=== PATIENT | female | born 1985 | race African-American/Black ===

== ENCOUNTER 2021-06-09 07:53 | Outpatient (CLI) | payer OTHER, MEDICAID, SELFPAY ==
--- NOTE | ~2021-06-09 | MR_ITS ---
EXAMINATION: MR abdomen wo/w con DATE: 06/09/2021 09:47 INDICATION: Acquired renal cyst TECHNIQUE: Magnetic resonance imaging (MRI) of the abdomen was performed without and with 20 mL Multi margo intravenous contrast. Sequences included coronal T2-weighted SS-FSE, coronal and axial FS 2D-F IESTA, axial STIR FSE, axial T2-weighted SS-FSE, axial T2-weighted FS SS-FSE, axial diffusion-weighte d SE, axial dual-echo T1-weighted FSPGR, and axial and coronal T1-weighted LAVA. Postcontrast axial T 1-weighted LAVA images were obtained in a time course. Postcontrast coronal T1-weighted LAVA images w ere obtained. COMPARISON: None. FINDINGS: Heart size is normal. No pericardial effusion. Tiny posterior layering left pleural effusion. Liver, gallbladder, spleen, pancreas, right kidney and bilateral adrenal glands are normal. 1.9 cm complex c yst at the lower pole of the left kidney with layering fluid fluid level posteriorly T1 hyperintense and T2 hypointense consistent with either blood or milk of calcium. No internal septations or enhanci ng soft tissue component. No pathologically enlarged abdominal lymphadenopathy. The bowels, bladder a nd uterus are unremarkable in the larger field of view coronal images. Normal bone marrow signal thro ughout.. IMPRESSION: 1. 1.9 cm complex left renal cyst with posterior layering blood or milk of calcium. 2. Tiny left pleural effusion. Reviewed, dictated and finalized at location A. [employer] IMPRESSION: 1. 1.9 cm complex left renal cyst with posterior layering blood or milk of calc ium. 2. Tiny left pleural effusion.
[2021-06-09 09:51] LABS: Estimated Glomerular Filt Rate > 60
== END 2021-06-09 07:54 | disposition home or self-care (01) ==
PROVIDERS: Visit Provider Urology
DX: N28.1 Cyst of kidney, acquired (principal)
CPT/HCPCS: 74183; A9577

== ENCOUNTER 2021-06-21 08:20 | Outpatient (RCR) | payer OTHER, MEDICAID, SELFPAY ==
--- NOTE | 2021-06-21 09:25 | PTOPEVAL ---
PHYSICAL THERAPY EVALUATION AND PLAN OF CARE 06-21-21 Thank you for referring Joya Coats to [facility].? She is scheduled to be seen for therapy? 2 x/week for 3 weeks. Treatment will be aquatic therapy, for the buoyancy effects of the water to decrease her pain. Please review, sign, date and return this plan of care ANTONIA. I agree with and certify that the following plan of care is medically necessary. Referring Physician Date Attending Provider: Alma Chun MD Document 06/21/21 08:20 MARISOL (Rec: 06/21/21 09:24 MARISOL [id number]) Past Medical History Source of Past Medical History Patient Neurological History Hx Migraine Yes: few times/month, cluster headaches Cardiovascular History Hx Cardiac Disorders No Significant History Respiratory History Hx Respiratory Disorders No Significant History Gastrointestinal History Hx Gastrointestinal Disorders No Significant History Genitourinary History Hx Genitourinary Disorders No Significant History Musculoskeletal History Hx Arthritis Yes: B knee pain/injections, shoulder R rot cuff repair, pain B sh Hx Back Pain Yes: chronic back pain/ Hx Orthopedic Surgery Yes: 17 procedures to back- ablation,radioablation~ past 2 & 1/2 yr Hx Other Musculoskeletal Disorders Yes: fibromyalgis,chronic pain syndrome from back procedure Hematological History Hx Hematological Disorders No Significant History Endocrine History Hx Endocrine Disorders No Significant History HEENT History Hx Other HEENT Disorders Yes: sinus surgery Integumentary History Hx Skin Disorders No Significant History Reproductive History Hx Section Yes Hx Other Reproductive Disorders Yes: LMP 03/19/2019 Psychosocial History Hx Anxiety Yes Hx Post Traumatic Stress Disorder Yes Hx Other Psychiatric Disorders Yes: situationsal anxiety with 4 yr old child Other History Hx Other Medical Conditions Yes: obesity Evaluation Information Problem Diagnosis fibromyalgis and LBP with leg pain Onset October 2020 Subjective Information have had multiple tests---MRI Query Text:As Reported By Patient/ of neck, thoracic and lumbar Family areas; x rays of hips, knees, back; doppler studies, EMG; pain management --had recent MRI and to get results next week; is considering neuro stim implant;
--- NOTE | 2021-06-26 08:21 | PCPTNOTE ---
Patient did not show up for scheduled appointment this date. Called patient, was unable to leave a message mail box was full.
--- NOTE | 2021-06-30 08:52 | PCPTNOTE ---
Patient did not show up for scheduled appointment this date. Pt called and stated to have over slept. Will continue per POC. This is patient's second N/S.
--- NOTE | 2021-07-03 12:55 | PCPTNOTE ---
Patient did not show up for scheduled appointment this date. Called & left a message, that per our policy of 3 no shows, she will need a new order to continue therapy.
--- NOTE | 2021-07-12 15:44 | PCPTNOTE ---
PHYSICAL THERAPY DISCHARGE 07-12-21 Attending Provider: Alma Chun MD Patient:Joya Coats Date of :1985 Patient has not returned for any further treatments since the initial evaluation on 06/21/2021, therefore she will be discharged at this time. She did not show for 3 scheduled appointments. The goals were not addressed. Thank you for referring this patient to [facility]. Please review, sign, date and return this discharge summary ANTONIA. I have been updated about the patient's current status and I agree with discharge from the above service at this time. Referring Physician Date
== END 2021-07-13 07:22 | disposition home or self-care (01) ==
LOC: ANHPT 08:20
PROVIDERS: Visit Provider Physical Medicine & Rehabilitation Pain Medicine
DX: M79.7 Fibromyalgia (principal); M54.50 Low back pain, unspecified; M79.606 Pain in leg, unspecified
CPT/HCPCS: 97162

== ENCOUNTER → 2022-02-08 16:06 | Outpatient (CLI) | payer OTHER, MEDICAID, SELFPAY ==
--- NOTE | ~2022-02-08 | MR_ITS ---
EXAMINATION: MR knee RT wo con DATE: 02/08/2022 17:14 INDICATION: Chronic right knee pain TECHNIQUE: Magnetic resonance imaging (MRI) of the right knee was performed without intravenous contr ast. Sequences included coronal PD-weighted FSE, coronal PD-weighted FS FSE, sagittal T2-weighted FS E, sagittal PD-weighted FS FSE and axial PD weighted fat saturated FSE. COMPARISON: None. FINDINGS: Medial compartment: Mild medial extrusion of the medial meniscal body without meniscal tear. Mild partial-thickness carti pérez loss along the medial side of the anterior weightbearing medial femoral condyle. Mild partial-th ickness chondral fissuring along the lateral margin of the anterior weightbearing medial femoral cond yle. Lateral compartment: Lateral meniscus is normal. Articular cartilage is normal. Patellofemoral compartment: Partial-thickness patellar cartilage loss with chondral surface regularity and scattered partial thic kness chondral fissuring but without degenerative subchondral changes. Ligaments and tendons: Anterior and posterior cruciate ligaments are normal. The medial collateral ligament and fibular rajesh ateral ligament complex are normal. The extensor mechanism is normal. The visualized medial and later al hamstring tendons as well as the iliotibial band are normal. Fluid: Physiologic amount of fluid in the joint space. No loose osteochondral bodies identified. Osseous/other: Normal marrow signal. No fracture or pathologic marrow replacing process. IMPRESSION: 1. 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 2. Medial extrusion of the medial meniscal body without tear. Reviewed, dictated and finalized at location A. IMPRESSION: 1. Mild osteoarthritis with regions of moderate grade chondromalacia in the pat ellofemoral and to lesser degree medial compartments. 2. Medial extrusion of the medial meniscal body without tear.
== END ==
PROVIDERS: PCP Hospitalist
DX: M17.11 Unilateral primary osteoarthritis, right knee (principal); S83.241A Other tear of medial meniscus, current injury, right knee, initial encounter; X58.XXXA Exposure to other specified factors, initial encounter
CPT/HCPCS: 73721